=== PATIENT | female | born 1970 | race Caucasian/White ===

== ENCOUNTER → 2016-07-14 | Outpatient (CLI) | payer OTHER ==
[~2016-07-14] MED LIST: ACET-2321 PO; ASPI-1115 PO; DOCU-168 PO; FERR325T40 PO; GARL1CAP7 PO; LISI-126 PO; MELO-28 PO; METF500T4 PO; OMEG-15 PO; OMEP20TA11 PO; OXYC-544 PO; POLY17PO6 PO; TRAM50TA4 PO
== END ==
LOC: WC.BC 12:51
DX: Z12.31 Encounter for screening mammogram for malignant neoplasm of breast (principal); N64.59 Other signs and symptoms in breast
CPT/HCPCS: 77063; G0202